=== PATIENT | female | born 1950 | race Caucasian/White ===

== ENCOUNTER 2020-07-13 19:16 | Inpatient (IN) ==
[2020-07-13] MEDS ORDERED: SODIUM CHLORIDE 0.9% 1000ML 1,000 ML IV SCH (20:00)
--- NOTE | 2020-07-13 20:00 | Emergency Department Note ---
History of Present Illness General Chief complaint: Referred by Doctor Stated complaint: COVID + Time Seen by Provider: 07/13/20 19:30 Source: patient Mode of arrival: ambulatory Limitations: no limitations History of Present Illness Provider complaint: Kidney failure This is a 70-year-old female who presents to the ED with a chief complaint of kidney failure. The patient states that she was diagnosed with COVID-19 on Monday. She had her test last Monday, 5 days ago. She states that she has been fatigued and has had a decreased appetite with poor p.o. intake. She had the onset of her Covid symptoms about 10 days ago with a cough and congestion. The patient states that she went to the [facility] today and was diagnosed with kidney failure. She states that they wanted to transfer her to [facility] or [facility] but there were no beds available. She states that a family member who works here told her just to sign out and come to [facility] [address]. The patient was discharged from there and came here. She was given IV fluids there. She was also given some IV nausea medication. Laboratory studies from [facility] earlier today shows a BUN of 94 and a creatinine of 5.0. They report her baseline as 0.9. She did have a chest x-ray at the outside facility that revealed a COVID-19 type pattern. Past Med/Surg History Medical History (Updated 07/13/20 @ 21:06 by Smooth Carrington DO) Depression High cholesterol Hypertension IBS (irritable bowel syndrome) Social History Smoking Status: Never smoker Preferred Language: Swiss Feels Safe at Home: Yes Review of Systems A total of 10 systems reviewed and were otherwise negative Physical Exam Vital Signs Vital Signs - 24 hr 07/13/20 19:18 07/13/20 20:17 07/13/20 20:31 Temperature 35.3 C L Temperature Source Temporal Artery Scan Pulse Rate 79 79 79 Respiratory Rate 22 24 24 Respiratory Depth Normal Blood Pressure 89/59 L 105/48 L 89/54 L Blood Pressure Mean 69 67 65 Pulse Oximetry 97 98 98 Oxygen Delivery Method Room Air Sepsis Recent Fever Within 48 Hours No Sepsis New/Unexplained Change in Mental Status N/A Sepsis Action Taken by Nursing No Action Required 07/13/20 20:45 Temperature Temperature Source Pulse Rate 73 Respiratory Rate 24 Respiratory Depth Blood Pressure 91/48 L Blood Pressure Mean 62 Pulse Oximetry 98 Oxygen Delivery Method Sepsis Recent Fever Within 48 Hours Sepsis New/Unexplained Change in Mental Status Sepsis Action Taken by Nursing CONSTITUTIONAL/VITAL SIGNS: Reviewed / noted above. GENERAL: Non-toxic in appearance. INTEGUMENTARY: Warm, dry, and [place]. HEAD: Normocephalic. EYES: without scleral icterus or trauma. ENT/OROPHARYNX: clear and moist. LYMPHADENOPATHY/NECK: Is supple without lymphadenopathy or meningismus. RESPIRATORY: Lungs clear and equal. CARDIOVASCULAR: Regular rate and rhythm. GI/ABDOMEN: Soft and nontender. No organomegaly or pulsatile mass. No rebound or guarding. Normal bowel sounds. EXTREMITIES: Warm and well perfused. BACK: No CVA tenderness. NEUROLOGICAL: Intact without focal deficits. PSYCHIATRIC: normal affect. MUSCULOSKELETAL: Normally developed with good muscle tone. TRIAGE NURSING DOCUMENTATION REVIEWED. Course Administered Medications Discontinued Medications Sodium Chloride (Nss 1000ml) 1,000 mls @ 999 mls/hr IV .Q1H1M JULIO CESAR Stop: 07/13/20 21:00 Last Admin: 07/13/20 20:18 Dose: 999 mls/hr Documented by: [id number] Medical Decision Making Differential Diagnosis Differential includes acute coronary syndrome, myocardial infarction, CVA, TIA, anemia, infection, pneumonia, UTI, pyelonephritis, poor nutrition, dehydration, electrolyte disturbance,hypoglycemia. Medical Records Attestation: I reviewed the patient's medical records. Home Medications Current Medication List: was personally reviewed by me Laboratory Data Attestation: I reviewed the patient's lab results. Result diagrams: 07/13/20 20:15 07/13/20 20:15 Lab Results 07/13/20 07/13/20 Range/Units 20:15 20:15 WBC 7.53 (4.8-10.8) K/uL RBC 4.38 (4.2-5.4) M/uL Hgb 12.9 (12.0-16.0) g/dL Hct 36.7 L (37-47) % MCV 83.8 (80-100) fL MCH 29.5 (25-34) pg MCHC 35.1 (32-36) g/dL RDW Std Deviation 39.7 (36.4-46.3) fL RDW Coeff of Doreen 13.1 (11.5-14.5) % Plt Count 257 (130-400) K/uL MPV 9.9 (7.4-10.4) fL Immature Gran % (Auto) 0.4 % Neut % (Auto) 74.5 % Lymph % (Auto) 17.3 % [place] % (Auto) 7.7 % Eos % (Auto) 0.0 % Baso % (Auto) 0.1 % Neut # (Auto) 5.61 (1.4-6.5) K/uL Lymph # (Auto) 1.30 (1.2-3.4) K/uL [place] # (Auto) 0.58 (0.11-0.59) K/uL Eos # (Auto) 0.00 (0-0.5) K/uL Baso # (Auto) 0.01 (0-0.2) K/uL Immature Gran # (Auto) 0.03 H (0.00-0.02) K/uL Sodium 132 L (136-145) mmol/L Potassium 3.5 (3.5-5.1) mmol/L Chloride 104 (98-107) mmol/L Carbon Dioxide 16 L (21-32) mmol/L Anion Gap 12.0 H (3-11) BUN 92 H (7-18) mg/dl Creatinine 3.79 H (0.6-1.2) mg/dl Est Cr Clr Drug Dosing 15.1 ml/min Est GFR ( Amer) 13.4 Est GFR (Non-Af Amer) 11.6 BUN/Creatinine Ratio 24.2 H (10-20) Glucose 110 H (70-99) mg/dl Calcium 8.9 (8.5-10.1) mg/dl Magnesium 2.8 H (1.8-2.4) mg/dl Total Bilirubin 0.5 (0.2-1) mg/dl AST 18 (15-37) U/L ALT 25 (12-78) U/L Alkaline Phosphatase 67 (45-117) U/L Total Creatine Kinase 113 (26-192) U/L Total Protein 8.1 (6.4-8.2) gm/dl Albumin 3.2 L (3.4-5.0) gm/dl Globulin 4.9 H (2.5-4.0) gm/dl Albumin/Globulin Ratio 0.7 L (0.9-2) TSH 1.070 (0.300-4.500) uIu/ml MDM Narrative Patient presents after going to another hospital earlier and being told that her blood work suggested kidney failure. They wanted her to be transferred to another hospital but were unable to do so. She checked out and decided to come here on her own. She reports fatigue and decreased p.o. intake related to a recent diagnosis of Covid. She is noted to have a blood pressure of 89/59. She does have a history of hypertension. The patient CBC was unremarkable. Her BUN is 92 and creatinine is 3.79. Earlier today at the outside hospital her creatinine was 5.0 (0.9 baseline) with a BUN of 94. Her magnesium now is 2.8. It was 3.0 earlier today. The patient will be seen by the hospitalist for further evaluation and care. Impression & Plan Acute renal failure, Acute dehydration, COVID-19 Discharge Plan Visit Data Chief Complaint: Referred by Doctor Stated Complaint: COVID + ED Provider: Smooth Carrington Discharge Problem: Acute renal failure, Acute dehydration, COVID-19 Patient Disposition: Being Evaluated by Hospitalist Forms Stand Alone Forms: My [facility] Referrals Referrals: PCP,NO [Primary Care Provider] -
[2020-07-13 20:34] LABS: Basophils # (auto) 0.01 K/uL (0-0.2); Basophils % (auto) 0.1 %; Hematocrit (blood only) 36.7 % (37-47); Hemoglobin 12.9 g/dL (12.0-16.0); Immature Granulocytes # (auto) 0.03 K/uL (0.00-0.02); Immature Granulocytes % (auto) 0.4 %; Lymphocytes % (auto) 17.3 %; Mean Corpuscular Hemoglobin 29.5 pg (25-34); Mean Corpuscular Hgb Conc 35.1 g/dL (32-36); Mean Corpuscular Volume 83.8 fL (80-100); Mean Platelet Volume 9.9 fL (7.4-10.4); Monocytes # (auto) 0.58 K/uL (0.11-0.59); Monocytes % (auto) 7.7 %; Neutrophils # (auto) 5.61 K/uL (1.4-6.5); Neutrophils % (auto) 74.5 %; Platelet Count 257 K/uL (130-400); RDW Coefficient of Variation 13.1 % (11.5-14.5); RDW Standard Deviation 39.7 fL (36.4-46.3); Red Blood Count 4.38 M/uL (4.2-5.4); White Blood Count 7.53 K/uL (4.8-10.8)
[2020-07-13 21:00] LABS: Albumin Level 3.2 gm/dl (3.4-5.0); BUN Creatinine Ratio 24.2 (10-20); Calcium 8.9 mg/dl (8.5-10.1); Creatinine Clr Calc Pharmacy 15.1 ml/min; Est GFR (African American) 13.4; Est GFR (Non-African American) 11.6; Magnesium 2.8 mg/dl (1.8-2.4); Potassium 3.5 mmol/L (3.5-5.1)
[2020-07-13 21:10] LABS: Albumin Globulin Ratio 0.7 (0.9-2); Bilirubin,Total 0.5 mg/dl (0.2-1); Globulin 4.9 gm/dl (2.5-4.0); Thyroid Stimulating Hormone 1.07 uIu/ml (0.300-4.500); Total Protein 8.1 gm/dl (6.4-8.2)
[2020-07-13 21:33] LABS: Appearance Urine Cloudy (Clear); Bacteria Urine Automated Negative (Negative); Bilirubin Urine Negative (Negative); Blood Urine 1+ (Negative); Color Urine Yellow; Epithelial Cell Urine Auto >30 /lpf (0-5); Glucose Urine UA Negative (Negative); Ketones Urine Negative (Negative); Leukocyte Esterase Urine 1+ (Negative); Nitrite Urine Negative (Negative); Protein Urine 1+ (Negative); RBC Urine Automated 0-4 /hpf (0-4); Specific Gravity Urine 1.018 (1.000-1.030); Urobilinogen Urine Negative (Negative)
[2020-07-13 21:49] LABS: Cast Urine Automated >30 /lpf (0-5); Granular Casts Urine >30 /lpf (0)
--- NOTE | 2020-07-13 22:31 | History & Physical Report ---
Date of Service July 13, 2020 Assessment & Plan (1) Acute renal failure: Mrs. Sutherland is a 70 yo woman with a PMHx of HTN, HLD, depression, and irritable bowel syndrome who presented to [facility] from an outside facility regarding acute kidney failure. Earlier today, she was seen in [facility] in [place], [place] where her serum creatinine was 5.0 (her baseline Cr is reportedly 0.8, from 03/2020). Upon arrival to [facility], serum creatinine was 3.79. - baseline Cr 0.8 (per patient's report of labs drawn in 03/2020). - serum creatinine 5.0 earlier today at [facility]. Cr 3.79 on arrival to [facility] - BUN elevated to 92. Ratio 24 - K normal at 3.5 - suspect ARF is due to reported lack of PO intake related to her concurrent COVID 19 infection --> renal hypoperfusion - UA + for hyaline and granular casts - suspect pre-renal vs. Acute tubular necrosis (intrarenal) - no recent nephrotoxin use (such as IV contrast, vancomycin, cisplatin, aminoglycosides, or NSAIDs) - patient was given 1 liter of normal saline at [facility]. additional 1 liter bolus given in our ED. Continue NSS at 150mls/hr. 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 For this reason, I will give one dose of Dexamethasone, 6mg, IV. Recommend no further use if O2 sat remains > 94% on room air. - I will hold off on remdesirivr at this time - but this can be reconsidered in am if O2 saturation worsens - convalescent plasma not indicated (it has been > 3 days since symptom onset) - Lovenox 0.5mg/kg q12 for prophylaxis - supplemental O2 as needed - COVID 19 isolation precautions - negative pressure room (3) Increased anion gap metabolic acidosis: - anion gap 14 (corrected for low albumin) - lactate pending - uremia is a possible cause (BUN 92) - patient not on isoniazid. No anti-freeze ingestion. Glucose normal on admission, not in DKA. No salicylate use. - fluids as above - trend BMP (4) Hyponatremia: - level 132 on admission, up form 131 at [facility] - unknown if this is a chronic vs. acute issue - continue normal saline as above - repeat BMP in am (5) Hypertension: - home medication regimen consists of atenolol 100mg BID and Valsartan 80 BID - patient was hypotensive on arrival at 89/54 - will hold home BP meds on admission (6) High cholesterol: - continue home dose statin (7) Depression: - continue home dose sertraline (8) IBS (irritable bowel syndrome): - continue home dose Linzess and Amitiza Dispo: Med surg w tele Diet: Heart Healthy Dvt ppx: Lovenox as above Code: Full, I discussed with patient History of Present Illness Primary Care Provider: NO PCP Mrs. Sutherland is a 70 yo woman with a PMHx of HTN, HLD, depression, and irritable bowel syndrome who presented to [facility] from an outside facility regarding acute kidney failure. Earlier today, she was seen in [facility] in [place], [place] where her serum creatinine was 5.0 (her baseline Cr is reportedly 0.8, from 03/2020). The facility was looking to transfer her to either [facility] or [facility], but there were no beds immediately available at either institution. Mrs. Sutherland decided to sign herself out of [facility] and drive to [facility] (her brother is a nurse here) for further evaluation and management. Of note, Mrs. Sutherland tested positive for COVID 19 last week. She started experiencing symptoms 10 days ago (07/03/20), which consisted of nasal congestion, cough, fever, and profound fatigue. She was tested at a clinic near her home on 07/08/20, and was informed of her positive result on 07/10/20. As a result of her viral illness, Mrs. Mccombie reported reduced oral intake of both food and drink. She denies any diarrhea, nausea or vomiting. She did not ever lose her sense of taste or smell. She did take two tablets of Ibuprofen early in the course of her illness, but denies any regular use of NSAIDs. She has no history of chronic kidney disease. She has no history of underlying lung disease or congestive heart failure. She is not immunocompromised. Social Hx: she lives at home with her son - who was also sick over the past week with more mild symptoms. she is a life-time non-smoker. Prior to leaving [facility], she was given 1 liter of normal saline. On arrival to our ED, she was afebrile, HR normal at 79, BP low at 89/59 (MAP 69), RR 20 and O2 sat of 97 on room air. Her WBC was normal. Hgb normal. Her glucose was 110. Na low at 132. K normal at 3.5. Mag high at 2.8. Cr 3.79. BUN 92. TSH normal at 1. EKG showing accelerated junction rhythm, however on my read, it is NSR at [address] segment changes. Covid 19 testing was not repeated. She was given 1 liter of normal saline. Allergies Allergy/AdvReac Type Severity Reaction Status Date / Time No Known Allergies Allergy Unverified 07/13/20 21:38 Home Medications Medication Instructions Recorded Confirmed Type atenolol 100 mg PO BID 07/13/20 07/13/20 History atorvastatin 20 mg PO DAILY 07/13/20 07/13/20 History linaclotide [Linzess] 290 mcg PO DAILY 07/13/20 07/13/20 History lubiprostone [Amitiza] 24 mcg PO BID 07/13/20 07/13/20 History polyethylene glycol 3350 [Miralax] 17 g PO DAILY PRN 07/13/20 07/13/20 History sertraline 50 mg PO BID 07/13/20 07/13/20 History valsartan 80 mg PO BID 07/13/20 07/13/20 History Past Med/Surg History Medical History Depression High cholesterol Hypertension IBS (irritable bowel syndrome) Social History Smoking Status: Never smoker Hx Alcohol Use: No Hx Substance Use: No Preferred Language: Spanish Communication Ability: Effective 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 Beliefs That Will Affect Care: None Current Living Situation: Spouse Other Information That Helps Us Care for You: No Feels Safe at Home: Yes and No Is there a partner from a previous relationship who is making you feel unsafe now?: No Any Concerns about Your Family Situation: No Would You Like to Speak to Someone About Your Situation: No Safety Concerns: Feels Safe At This Time Assistive Devices: None Review of Systems Constitutional: + fatigue and + anorexia; no fever and no chills Respiratory: + cough Cardiovascular: no chest pain Physical Exam Constitutional: WD/WN, vitals as above + ill appearing and cooperative; no acute distress Eyes: + anicteric sclerae ENMT: external ear and nose normal, oropharynx normal Neck: normal visual inspection and trachea midline Respiratory: normal respiratory effort and + cough; no respiratory distress, no labored breathing and no stridor Auscultation: no crackles, no rales, no wheezes and no pleural rub Cardiovascular: RRR, no murmur, no edema Heart Sounds: normal S1 and normal S2 Extremities: no pedal edema Gastrointestinal (Abdomen): normal bowel sounds, soft, nontender, no hepatosplenomegaly Skin: no rashes, warm and dry Neurologic: moves all extremities Psychiatric: A+Ox3, euthymic affect Results & Data Results & Data ([facility]) Vital Signs (Past 12 Hours) Vital Signs Temp Pulse Resp BP Pulse Ox 07/13/20 21:31 72 20 97/48 L 93 07/13/20 20:45 73 24 91/48 L 98 07/13/20 20:31 79 24 89/54 L 98 07/13/20 20:17 79 24 105/48 L 98 07/13/20 19:18 35.3 C L 79 22 89/59 L 97 Supervising Physician Co-Signing Physician Notes Attending addendum: I have physically seen this patient, have supervised the medical residents activities, and agree with the H&P unless as otherwise noted. Assessment and Plan: Acute kidney injury- Creatinine 5.0 in the outpatient setting today, then 3.79 upon admission, with baseline 0.8. Prerenal state suggested with BUN to creatinine ratio 24. Patient received 1 L normal saline in ED, and will give another liter of normal saline now, Then continue NSS at 150 mils per hour Repeat BMP and magnesium level in a.m. COVID-19 infection confirmed on 07/10 at [facility], from test on 07/08- Dexamethasone 6 mg IV tonight, and reassess in the a.m. Ventolin HFA 2 puffs 4 times daily, and every 2 hours as needed Lovenox 0.5 mg kilogram subcu every 12 hours Nasal cannula oxygen, titrate to keep pulse ox 94 to 95% Remaining orders and notations as noted Resident Activity Tracking Resident Involvement: Resident Care Provided Care Provided: Adult Hospital Medicine
[2020-07-13] MEDS ORDERED: POLYETHYLENE (MIRALAX) 17 GM PACK PO PRN (23:26)
[2020-07-13] MEDS ORDERED: ACETAMINOPHEN 325 MG TAB PO PRN (23:26)
[2020-07-13] MEDS ORDERED: ONDANSETRON INJ 2 MG/ML 2 ML VIAL IV PRN (23:26)
[2020-07-13] MEDS ORDERED: DEXAMETHASONE SOD INJ 4 MG/ML VIAL IV STA (23:26)
[2020-07-14] MEDS: SODIUM CHLORIDE 0.9% 1000ML 1,000 ML IV SCH ×2 (00:30→05:53)
[2020-07-14] MEDS: ENOXAPARIN INJ 40 MG/0.4 ML SYR SQ SCH ×2 (01:05→21:12)
[2020-07-14 01:46] LABS: BUN Creatinine Ratio 28.3 (10-20); Calcium 8.3 mg/dl (8.5-10.1); Creatinine Clr Calc Pharmacy 19.8 ml/min; Est GFR (African American) 18.4; Est GFR (Non-African American) 15.8; Potassium 3.6 mmol/L (3.5-5.1)
--- NOTE | 2020-07-14 08:45 | Hospitalist Progress Note ---
Date of Service July 14, 2020 Assessment & Plan (1) Acute renal failure: Mrs. Sutherland is a 70 yo woman with a PMHx of HTN, HLD, depression, and irritable bowel syndrome who presented to [facility] from an outside facility regarding acute kidney failure. Earlier today, she was seen in [facility] in [place], [place] where her serum creatinine was 5.0 (her baseline Cr is reportedly 0.8, from 03/2020). Upon arrival to [facility], serum creatinine was 3.79. - K normal at 3.5 - suspect ARF is due to reported lack of PO intake, related to her concurrent COVID 19 infection , plus use of ARB --> renal hypoperfusion - UA + for hyaline and granular casts there is no active sediment to suspect postinfectious glomerulonephritis at this point in time - suspect pre-renal vs. Acute tubular necrosis (intrarenal) - patient was given 1 liter of normal saline at [facility]. additional 1 liter bolus given in our ED. Continue Normosol at 150mls/hr patient with a slight increase her chloride renal is following creatinine great improvement in the evening of 07/14/2020. 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 For this reason, she was given one dose of Dexamethasone, 6mg, IV. Recommend no further use if O2 sat remains > 94% on room air. - convalescent plasma not indicated (it has been > 3 days since symptom onset) - Lovenox 0.5mg/kg q12 for prophylaxis - supplemental O2 as needed - COVID 19 isolation precautions (3) Increased anion gap metabolic acidosis: - anion gap 14 resolved (4) Hyponatremia: Resolved (5) Hypertension: - home medication regimen consists of atenolol 100mg BID and Valsartan 80 BID - patient remains hypotensive - will continue to hold home BP meds on admission, and continue ivf (6) High cholesterol: - continue home dose statin (7) Depression: - continue home dose sertraline (8) IBS (irritable bowel syndrome): - continue home dose Linzess and Amitiza Dispo: Med surg w tele Diet: Heart Healthy Dvt ppx: Lovenox as above Code: Full, I discussed with patient Admission and Anticipated Discharge Date Admission Date: July 13, 2020 Subjective pt feels improved, her renal function continues to improve with ivf, with covid she remains on room air Review of Systems Review of Systems: Mild distress and fatigue no headache, blurry or double vision no speech or swallowing issues no chest pain, pressure or palpitations Remains slightly tachypneic, no cough or wheezes no abdominal pain, nausea or vomiting, still with loose bowel movements no dysuria, hematuria or frequency no focal joint pain or swelling no back pain, CVA tenderness or radicular pain no bruising, bleeding or rashes no focal signs of weakness or numbness or altered sensation no complaints of anxiety or depression.. Physical Exam Physical Exam: The patient appeared well nourished and normally developed. Vital signs as documented. Head exam is normocephalic atraumatic no scleral icterus Neck is without JVD, thyromegaly, or carotid bruits. Lungs are mild bibasilar rales otherwise clear, no focal loss of breath sounds Cardiac exam, Rhythm is regular.. No murmurs, rubs or gallops. Abdominal exam reveals normal bowel sounds, soft non tender, no masses Extremities are nonedematous and both pedal pulses are present Neurologic exam is alert and oriented, no focal loss of strength or sensation Skin is without bruises or rashes Psychologically is without concerns for anxiety or depression. Results & Data Results & Data ([facility]) Vital Signs (Past 12 Hours) Vital Signs Temp Pulse Pulse Resp BP BP Pulse Ox 07/14/20 07:35 97.9 F 58 L 20 92/57 L 96 07/14/20 05:57 94/56 L 07/14/20 05:56 99/42 L 07/14/20 03:50 98.6 F 70 18 105/57 L 97 07/13/20 23:59 72 07/13/20 23:45 98.8 F 73 20 103/54 L 96 07/13/20 23:26 98.8 F 20 103/54 L 96 07/13/20 22:17 78 20 93/50 L 96 07/13/20 22:00 79 23 82/48 L 94 07/13/20 21:31 72 20 97/48 L 93 07/13/20 20:45 73 24 91/48 L 98 PG Care Time/CCT Total # of Minutes Spent Total Time Spent with Patient: Total time spent is greater than 50% in coordination of care (as documented) at patient's floor/unit and/or counseling patient: Coding Level of Care Code 79247 Subseq Hosp Care Lvl 3 Diagnoses Acute renal failure N17.9 COVID-19 U07.1 Increased anion gap metabolic acidosis E87.2 Hyponatremia E87.1 Hypertension I10 High cholesterol E78.00 Depression F32.9 IBS (irritable bowel syndrome) K58.9
[2020-07-14] MEDS ORDERED: ATORVASTATIN 20 MG TAB PO SCH (09:00)
[2020-07-14] MEDS: SERTRALINE HCL 50 MG TABLET PO SCH ×2 (09:24→21:12)
[2020-07-14] MEDS: LINACLOTIDE 145 MCG CAPSULE PO SCH (09:25)
[2020-07-14] MEDS: LUBIPROSTONE 8 MCG CAP PO SCH ×2 (09:25→21:12)
--- NOTE | 2020-07-14 11:23 | Electrocardiogram Report ---
Test Reason : Blood Pressure : / mmHG Vent. Rate : 071 BPM Atrial Rate : 071 BPM P-R Int : 000 ms QRS Dur : 092 ms QT Int : 430 ms P-R-T Axes : 000 056 028 degrees QTc Int : 467 ms sinus rhythm No previous ECGs available Confirmed by Yossi Mckenzie ([id number]) on 07/14/2020 11:22:42 AM Referred By: REFERRED SELF Confirmed By:Fernando Mckenzie
[2020-07-14] MEDS: NORMOSOL-R 1,000 ML IV SCH ×3 (15:19→22:08)
--- NOTE | 2020-07-14 16:25 | Nephrology Consultation ---
Date of Consultation July 14, 2020 Assessment & Plan (1) Acute renal failure: * Consistent with ATN and prerenal physiology * UA with hyaline and granular casts * Creatinine improving * Follow up labs have been sent * Valsartan held * Continue IVF to maintain a positive fluid balance and support MAP >65 * Normosol @ 150 ml/hr * Document I/O's * Repeat metabolic profile in the AM (2) COVID-19: * Medications appropriate for kidney function (3) Increased anion gap metabolic acidosis: * Metabolic acidosis attributed to renal dysfunction * Predominately NAGMA * Additional HCO3 replacement deferred at this time * Will monitor (4) Hypertension: * Atenolol and valsartan held due to kidney dysfunction * Avoid restarting ARB at this time given GLENDA History of Present Illness Reason for Consultation: GLENDA Requesting Physician: Haim Hinson MD Attending Physician: Haim Hinson MD History of Present Illness Lorenza Mclean is a 70-year-old female with hypertension, hyperlipidemia, IBS, and depression. She has normal kidney function at baseline with a serum creatinine of <1 mg/dL. Lorenza presented to [facility] yesterday with weakness and dyspnea. She is COVID 19+ with pneumonia. Evaluation also notable for significant acute on chronic renal insufficiency. Lorenza was transferred to [facility] yesterday. I called and spoke with her on the phone today. I reviewed the medical record and discussed the plan of care with Dr. Hinson. Creatinine peaked at 5.0 mg/dL on admission and has improved to 2.9 mg/dL. Follow up labs have now been sent and are currently pending. Lorenza is tolerating IVF well. Overall, symptoms are improving. She is non-oliguric. Urine studies demonstrating hyaline and granular casts but otherwise acellular. No renal imaging currently available for review. No prior history of GLENDA. Lorenza has never been previously evaluated by a geoduck diver. Allergies Allergy/AdvReac Type Severity Reaction Status Date / Time No Known Allergies Allergy Unverified 07/13/20 21:38 Home Medications Medication Instructions Recorded Confirmed Type atenolol 100 mg PO BID 07/13/20 07/13/20 History atorvastatin 20 mg PO DAILY 07/13/20 07/13/20 History linaclotide [Linzess] 290 mcg PO DAILY 07/13/20 07/13/20 History lubiprostone [Amitiza] 24 mcg PO BID 07/13/20 07/13/20 History polyethylene glycol 3350 [Miralax] 17 g PO DAILY PRN 07/13/20 07/13/20 History sertraline 50 mg PO BID 07/13/20 07/13/20 History valsartan 80 mg PO BID 07/13/20 07/13/20 History Patient History Medical History Depression High cholesterol Hypertension IBS (irritable bowel syndrome) Social History Smoking Status: Never smoker Hx Alcohol Use: No Hx Substance Use: No Preferred Language: Croatian Communication Ability: Effective Diamond Selector Required: No Beliefs That Will Affect Care: None Current Living Situation: Spouse Other Information That Helps Us Care for You: No Feels Safe at Home: Yes and No Is there a partner from a previous relationship who is making you feel unsafe now?: No Any Concerns about Your Family Situation: No Would You Like to Speak to Someone About Your Situation: No Safety Concerns: Feels Safe At This Time Assistive Devices: None Review of Systems Review of Systems: All systems reviewed & are unremarkable except as noted in HPI & below Physical Exam Physical Exam: Deferred due to COVID 19 Results & Data ([facility]) Vital Signs (Past 12 Hours) Vital Signs Temp Pulse Resp BP Pulse Ox 07/14/20 15:35 36.5 C 71 18 101/53 L 93 07/14/20 11:44 36.3 C L 61 19 95/52 L 95 07/14/20 07:35 36.6 C 58 L 20 92/57 L 96 07/14/20 05:57 94/56 L 07/14/20 05:56 99/42 L Laboratory Results Laboratory Results - last 24 hr 07/13/20 07/13/20 07/13/20 20:15 20:15 21:05 WBC 7.53 RBC 4.38 Hgb 12.9 Hct 36.7 L MCV 83.8 MCH 29.5 MCHC 35.1 RDW Std Deviation 39.7 RDW Coeff of Doreen 13.1 Plt Count 257 MPV 9.9 Immature Gran % (Auto) 0.4 Neut % (Auto) 74.5 Lymph % (Auto) 17.3 Davis % (Auto) 7.7 Eos % (Auto) 0.0 Baso % (Auto) 0.1 Neut # (Auto) 5.61 Lymph # (Auto) 1.30 Davis # (Auto) 0.58 Eos # (Auto) 0.00 Baso # (Auto) 0.01 Immature Gran # (Auto) 0.03 H Sodium 132 L Potassium 3.5 Chloride 104 Carbon Dioxide 16 L Anion Gap 12.0 H BUN 92 H Creatinine 3.79 H Est Cr Clr Drug Dosing 15.1 Est GFR ( Amer) 13.4 Est GFR (Non-Af Amer) 11.6 BUN/Creatinine Ratio 24.2 H Glucose 110 H Lactate Calcium 8.9 Phosphorus Magnesium 2.8 H Total Bilirubin 0.5 AST 18 ALT 25 Alkaline Phosphatase 67 Total Creatine Kinase 113 Total Protein 8.1 Albumin 3.2 L Globulin 4.9 H Albumin/Globulin Ratio 0.7 L TSH 1.070 Specimen Hemolysis Urine Color Yellow Urine Appearance Cloudy A Urine pH 5.0 Ur Specific [place] 1.018 Urine Protein 1+ H Urine Glucose (UA) Negative Urine Ketones Negative Urine Blood 1+ H Urine Nitrite Negative Urine Bilirubin Negative Urine Urobilinogen Negative Ur Leukocyte Esterase 1+ H Urine WBC (Auto) 10-30 H Urine RBC (Auto) 0-4 U Hyaline Cast (Auto) >30 H U Epithel Cells (Auto) >30 H Urine Bacteria (Auto) Negative Granular Casts >30 H Urine Yeast Not Reportable 07/13/20 07/14/20 07/14/20 23:43 00:48 00:48 WBC RBC Hgb Hct MCV MCH MCHC RDW Std Deviation RDW Coeff of Doreen Plt Count MPV Immature Gran % (Auto) Neut % (Auto) Lymph % (Auto) Davis % (Auto) Eos % (Auto) Baso % (Auto) Neut # (Auto) Lymph # (Auto) Davis # (Auto) Eos # (Auto) Baso # (Auto) Immature Gran # (Auto) Sodium 136 Potassium 3.6 Chloride 109 H Carbon Dioxide 17 L Anion Gap 10.0 BUN 83 H Creatinine 2.92 H D Est Cr Clr Drug Dosing 19.8 Est GFR ( Amer) 18.4 Est GFR (Non-Af Amer) 15.8 BUN/Creatinine Ratio 28.3 H Glucose 98 Lactate 0.7 Calcium 8.3 L Phosphorus Magnesium Total Bilirubin AST ALT Alkaline Phosphatase Total Creatine Kinase 110 Total Protein Albumin Globulin Albumin/Globulin Ratio TSH Specimen Hemolysis Urine Color Urine Appearance Urine pH Ur Specific [place] Urine Protein Urine Glucose (UA) Urine Ketones Urine Blood Urine Nitrite Urine Bilirubin Urine Urobilinogen Ur Leukocyte Esterase Urine WBC (Auto) Urine RBC (Auto) U Hyaline Cast (Auto) U Epithel Cells (Auto) Urine Bacteria (Auto) Granular Casts Urine Yeast 07/14/20 00:48 WBC RBC Hgb Hct MCV MCH MCHC RDW Std Deviation RDW Coeff of Doreen Plt Count MPV Immature Gran % (Auto) Neut % (Auto) Lymph % (Auto) Davis % (Auto) Eos % (Auto) Baso % (Auto) Neut # (Auto) Lymph # (Auto) Davis # (Auto) Eos # (Auto) Baso # (Auto) Immature Gran # (Auto) Sodium Pending Potassium Pending Chloride Pending Carbon Dioxide Pending Anion Gap Pending BUN Pending Creatinine Pending Est Cr Clr Drug Dosing Pending Est GFR ( Amer) Pending Est GFR (Non-Af Amer) Pending BUN/Creatinine Ratio Pending Glucose Pending Lactate Calcium Pending Phosphorus Pending Magnesium Total Bilirubin AST ALT Alkaline Phosphatase Total Creatine Kinase Total Protein Albumin Pending Globulin Albumin/Globulin Ratio TSH Specimen Hemolysis Urine Color Urine Appearance Urine pH Ur Specific [place] Urine Protein Urine Glucose (UA) Urine Ketones Urine Blood Urine Nitrite Urine Bilirubin Urine Urobilinogen Ur Leukocyte Esterase Urine WBC (Auto) Urine RBC (Auto) U Hyaline Cast (Auto) U Epithel Cells (Auto) Urine Bacteria (Auto) Granular Casts Urine Yeast PG Care Time/CCT Total # of Minutes Spent Total Time Spent with Patient: Total time spent is greater than 50% in coordination of care (as documented) at patient's floor/unit and/or counseling patient: Coding Level of Care Code 33646 Inpt Consult Level 3 Diagnoses Acute renal failure N17.9 COVID-19 U07.1 Increased anion gap metabolic acidosis E87.2 Hypertension I10
[2020-07-14 16:49] LABS: Albumin Level 3.1 gm/dl (3.4-5.0); BUN Creatinine Ratio 38.5 (10-20); Calcium 9.1 mg/dl (8.5-10.1); Creatinine Clr Calc Pharmacy 33.9 ml/min; Est GFR (Non-African American) 30.2; Phosphorus 3.3 mg/dl (2.5-4.9); Potassium 4.1 mmol/L (3.5-5.1)
[2020-07-14] MEDS: ATORVASTATIN 20 MG TAB PO SCH (21:12)
[2020-07-14] MEDS: SODIUM BICARBONATE 650 MG TAB PO SCH (22:09)
--- NOTE | 2020-07-14 23:58 | Billing Data ---
Date of Service July 14, 2020 Coding Level of Care Code 92360 Initial Inpt Care Lvl 3
[2020-07-15] MEDS: NORMOSOL-R 1,000 ML IV SCH ×3 (05:56→20:41)
[2020-07-15 06:38] LABS: Albumin Level 2.6 gm/dl (3.4-5.0); BUN Creatinine Ratio 44.3 (10-20); Calcium 8.8 mg/dl (8.5-10.1); Creatinine Clr Calc Pharmacy 54.5 ml/min; Est GFR (African American) 63.2; Est GFR (Non-African American) 54.5; Phosphorus 2.5 mg/dl (2.5-4.9); Potassium 3.7 mmol/L (3.5-5.1)
[2020-07-15] MEDS: AMOXICILLIN 500 MG CAP PO SCH ×3 (08:09→20:46)
[2020-07-15] MEDS: SERTRALINE HCL 50 MG TABLET PO SCH ×2 (08:10→20:45)
[2020-07-15] MEDS: SODIUM BICARBONATE 650 MG TAB PO SCH (08:12)
[2020-07-15] MEDS ORDERED: POTASSIUM CHLORIDE 10 MEQ TABCR PO STA (08:50)
[2020-07-15] MEDS: LUBIPROSTONE 8 MCG CAP PO SCH ×2 (11:15→20:44)
[2020-07-15] MEDS: LINACLOTIDE 145 MCG CAPSULE PO SCH (13:11)
--- NOTE | 2020-07-15 16:12 | Hospitalist Progress Note ---
Date of Service July 15, 2020 Assessment & Plan (1) Acute renal failure: Mrs. Sutherland is a 70 yo woman with a PMHx of HTN, HLD, depression, and irritable bowel syndrome who presented to [facility] from an outside facility regarding acute kidney failure. Earlier today, she was seen in [facility] in [place], [place] where her serum creatinine was 5.0 (her baseline Cr is reportedly 0.8, from 03/2020). Upon arrival to [facility], serum creatinine was 3.79. - - suspect ARF is due to reported lack of PO intake, related to her concurrent COVID 19 infection , plus use of ARB --> renal hypoperfusion - UA + for hyaline and granular casts there is no active sediment to suspect postinfectious glomerulonephritis at this point in time - suspect pre-renal vs. 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 For this reason, she was given one dose of Dexamethasone, 6mg, IV. Recommend no further use if O2 sat remains > 94% on room air. Patient is off airborne isolation precautions however she will need to remain on isolation with mask and staff wearing gloves at this time - convalescent plasma not indicated (it has been > 3 days since symptom onset) - Lovenox 0.5mg/kg q12 for prophylaxis - supplemental O2 not needed - COVID 19 isolation precautions but airborne precautions are relaxed (3) Increased anion gap metabolic acidosis: - anion gap 14 resolved (4) Hyponatremia: Resolved (5) Urinary tract infection: Urinary tract infection present on admission pansensitive E. coli started amoxicillin therapy (6) Hypertension: - home medication regimen consists of atenolol 100mg BID and Valsartan 80 BID - patient remains without the need of recent instituting these medications will certainly watch for rebound tachycardia - will continue to hold home BP meds on admission, and continue ivf (7) High cholesterol: - continue home dose statin (8) Depression: - continue home dose sertraline (9) IBS (irritable bowel syndrome): - continue home dose Linzess and Amitiza Dispo: Med surg w tele Diet: Heart Healthy Dvt ppx: Lovenox as above Code: Full, I discussed with patient Admission and Anticipated Discharge Date Admission Date: July 13, 2020 Subjective pt feels improved, her renal function continues to improve with ivf, with covid she remains on room air infection control is released her from airborne isolation. Patient feels her overall fatigue and lethargy prevent her from being safe at home today but hopefully will have her assist by physical therapy on 07/16 Review of Systems Review of Systems: Mild distress and fatigue no headache, blurry or double vision no speech or swallowing issues no chest pain, pressure or palpitations Remains slightly tachypneic, no cough or wheezes no abdominal pain, nausea or vomiting, still with loose bowel movements no dysuria, hematuria or frequency no focal joint pain or swelling no back pain, CVA tenderness or radicular pain no bruising, bleeding or rashes no focal signs of weakness or numbness or altered sensation no complaints of anxiety or depression.. Physical Exam Physical Exam: The patient appeared well nourished and normally developed. Vital signs as documented. Head exam is normocephalic atraumatic no scleral icterus Neck is without JVD, thyromegaly, or carotid bruits. Lungs are mild bibasilar rales otherwise clear, no focal loss of breath sounds Cardiac exam, Rhythm is regular.. No murmurs, rubs or gallops. Abdominal exam reveals normal bowel sounds, soft non tender, no masses Extremities are nonedematous and both pedal pulses are present Neurologic exam is alert and oriented, no focal loss of strength or sensation Skin is without bruises or rashes Psychologically is without concerns for anxiety or depression. Results & Data Results & Data ([facility]) Vital Signs (Past 12 Hours) Vital Signs Temp Pulse Pulse Resp BP Pulse Ox 07/15/20 15:22 97.0 F L 78 18 113/73 98 07/15/20 11:34 97.7 F 87 20 126/68 94 07/15/20 08:07 97.9 F 65 20 104/60 96 07/15/20 08:00 55 L PG Care Time/CCT Total # of Minutes Spent Total Time Spent with Patient: Total time spent is greater than 50% in coordination of care (as documented) at patient's floor/unit and/or counseling patient: Coding Level of Care Code 10877 Subseq Hosp Care Lvl 3 Diagnoses Acute renal failure N17.9 COVID-19 U07.1 Increased anion gap metabolic acidosis E87.2 Hyponatremia E87.1 Urinary tract infection N39.0 Hypertension I10 High cholesterol E78.00 Depression F32.9 IBS (irritable bowel syndrome) K58.9
--- NOTE | 2020-07-15 16:59 | Nephrology Progress Note ---
Date of Service July 15, 2020 Assessment & Plan (1) Acute renal failure: * Consistent with ATN and prerenal physiology * UA with hyaline and granular casts * Creatinine improving * Valsartan held * Continue IVF to maintain a positive fluid balance, rate reduced from 150 ml/hr to 100 ml/hr * Document I/O's * Medications appropriate for kidney function * Repeat metabolic profile in the AM (2) COVID-19: * Medications appropriate for kidney function (3) Increased anion gap metabolic acidosis: * Metabolic acidosis attributed to renal dysfunction and GI losses * Predominately NAGMA, improving * HCO3 added overnight for persistent low - will hold now and recheck in the AM (4) Hypertension: * Atenolol and valsartan held due to kidney dysfunction * Avoid restarting ARB at this time Admission and Anticipated Discharge Date Admission Date: July 13, 2020 Subjective No acute events overnight. Continued improvement noted. Some persistent loose stools. Appetite not great. Activity tolerance remains limited. No fevers or chills. Review of Systems Review of Systems: All systems reviewed & are unremarkable except as noted in HPI & below Physical Exam Physical Exam: Deferred due to COVID 19 Results & Data ([facility]) Vital Signs (Past 12 Hours) Vital Signs Temp Pulse Pulse Resp BP Pulse Ox 07/15/20 15:22 36.1 C L 78 18 113/73 98 07/15/20 11:34 36.5 C 87 20 126/68 94 07/15/20 08:07 36.6 C 65 20 104/60 96 07/15/20 08:00 55 L Laboratory Results Laboratory Results - last 24 hr 07/15/20 05:26 Sodium 144 Potassium 3.7 Chloride 116 H Carbon Dioxide 20 L Anion Gap 8.0 BUN 47 H Creatinine 1.05 Est Cr Clr Drug Dosing 54.5 Est GFR ( Amer) 63.2 Est GFR (Non-Af Amer) 54.5 BUN/Creatinine Ratio 44.3 H Glucose 106 H Calcium 8.8 Phosphorus 2.5 Albumin 2.6 L PG Care Time/CCT Total # of Minutes Spent Total Time Spent with Patient: Total time spent is greater than 50% in coordination of care (as documented) at patient's floor/unit and/or counseling patient: Coding Level of Care Code 06716 Subseq Hosp Care Lvl 2 Diagnoses Acute renal failure N17.9 COVID-19 U07.1 Increased anion gap metabolic acidosis E87.2 Hypertension I10
[2020-07-15] MEDS: ATORVASTATIN 20 MG TAB PO SCH (20:45)
[2020-07-15] MEDS: ENOXAPARIN INJ 40 MG/0.4 ML SYR SQ SCH (20:46)
[2020-07-16] MEDS: NORMOSOL-R 1,000 ML IV SCH (05:48)
[2020-07-16 07:42] LABS: Albumin Level 2.6 gm/dl (3.4-5.0); Calcium 8.5 mg/dl (8.5-10.1); Creatinine Clr Calc Pharmacy 88.6 ml/min; Est GFR (African American) 105.7; Est GFR (Non-African American) 91.2; Phosphorus 2.2 mg/dl (2.5-4.9); Potassium 3.8 mmol/L (3.5-5.1)
[2020-07-16] MEDS: AMOXICILLIN 500 MG CAP PO SCH ×2 (08:17→13:25)
[2020-07-16] MEDS: SERTRALINE HCL 50 MG TABLET PO SCH (08:18)
[2020-07-16] MEDS: LUBIPROSTONE 8 MCG CAP PO SCH (08:18)
[2020-07-16] MEDS ORDERED: LINACLOTIDE 145 MCG CAPSULE PO SCH (12:30)
--- NOTE | 2020-07-16 18:52 | Discharge Summary ---
Date of Service July 16, 2020 Admission HPI Per Admitting Provider Mrs. Sutherland is a 70 yo woman with a PMHx of HTN, HLD, depression, and irritable bowel syndrome who presented to [facility] from an outside facility regarding acute kidney failure. Earlier today, she was seen in [facility] in [place], [place] where her serum creatinine was 5.0 (her baseline Cr is reportedly 0.8, from 03/2020). The facility was looking to transfer her to either [facility] or [facility], but there were no beds immediately available at either institution. Mrs. Sutherland decided to sign herself out of [facility] AMA and drive to [facility] (her brother is a nurse here) for further evaluation and management. Of note, Mrs. Sutherland tested positive for COVID 19 last week. She started experiencing symptoms 10 days ago (07/03/20), which consisted of nasal congestion , cough, fever, and profound fatigue. She was tested at a clinic near her home on 07/08/20, and was informed of her positive result on 07/10/20. As a result of her viral illness, Mrs. Sutherland reported reduced oral intake of both food and drink. She denies any diarrhea, nausea or vomiting. She did not ever lose her sense of taste or smell. She did take two tablets of Ibuprofen early in the course of her illness, but denies any regular use of NSAIDs. She has no history of chronic kidney disease. She has no history of underlying lung disease or congestive heart failure. She is not immunocompromised. Social Hx: she lives at home with her son - who was also sick over the past week with more mild symptoms. she is a life-time non-smoker. Prior to leaving [facility], she was given 1 liter of normal saline. On arrival to our ED, she was afebrile, HR normal at 79, BP low at 89/59 (MAP 69), RR 20 and O2 sat of 97 on room air. Her WBC was normal. Hgb normal. Her glucose was 110. Na low at 132. K normal at 3.5. Mag high at 2.8. Cr 3.79. BUN 92. TSH normal at 1. EKG showing accelerated junction rhythm, however on my read, it is NSR at [address] segment changes. Covid 19 testing was not repeated. She was given 1 liter of normal saline. Principal Diagnosis acute kidney injury covid infection not pneumonia urinary tract infection Discharge Exam The patient appeared well Vital signs as documented. Lungs are clear to auscultation and appear unlabored Cardiac exam, Rhythm is regular.. No murmurs, rubs or gallops. Abdominal exam reveals normal bowel sounds, soft non tender, no masses Extremities are nonedematous and both pedal pulses are normal. Neurologic exam is alert and oriented, no focal loss of strength or sensation Skin is without bruises or rashes Psychologically is without concerns for anxiety or depression. Discharge Data Allergies Allergy/AdvReac Type Severity Reaction Status Date / Time No Known Allergies Allergy Unverified 07/13/20 21:38 Consultations 07/13/20 21:12 ED Decision to Admit Stat 07/13/20 23:26 Consult Nephrology Routine Hospital Course (1) Acute renal failure: Mrs. Sutherland is a 70 yo woman with a PMHx of HTN, HLD, depression, and irritable bowel syndrome who presented to [facility] from an outside facility regarding acute kidney failure. Earlier today, she was seen in [facility] in [place], [place] where her serum creatinine was 5.0 (her baseline Cr is reportedly 0.8, from 03/2020). Upon arrival to [facility], serum creatinine was 3.79. -Resolved - suspect ARF is due to reported lack of PO intake, related to her concurrent COVID 19 infection , plus use of ARB --> renal hypoperfusion - UA + for hyaline and granular casts there is no active sediment to suspect postinfectious glomerulonephritis at this point in time - suspect pre-renal vs. 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 For this reason, she was given one dose of Dexamethasone, 6mg, IV. Recommend no further use if O2 sat remains > 94% on room air. Patient is off airborne isolation precautions however she will need to remain on isolation with mask and staff wearing gloves at this time - convalescent plasma not indicated (it has been > 3 days since symptom onset) - supplemental O2 not needed - COVID 19 isolation precautions but airborne precautions are relaxed (3) Increased anion gap metabolic acidosis: resolved (4) Hyponatremia: Resolved (5) Urinary tract infection: Urinary tract infection present on admission pansensitive E. coli complete amoxicillin therapy (6) Hypertension: -With resolution of renal failure will recommend resumption of atenolol 100mg BID and Valsartan 80 BID -Recommend outpatient follow-up of laboratories by primary care physician - (7) High cholesterol: - continue home dose statin (8) Depression: - continue home dose sertraline (9) IBS (irritable bowel syndrome): - continue home dose Linzess and Amitiza Total Time Total Time Spent Total Time Spent (In Minutes): It required greater than 30 minutes to prepare this patient for discharge Discharge Plan Discharge Items Patient Disposition: Home - Self-Care Reason For Visit: ACUTE RENAL FAILURE Discharge Diagnosis: acute renal failure secondary to dehydration secondary to covid infection Activity: Per Instructions section Activity Comment: slowly increase activity Non-emergency contact: Primary Care Provider Call non-emergency contact if: your symptoms worsen Follow-up/Referrals: PCP,NO [Primary Care Provider] - Diet: Regular Addtl Attending Provider Instructions: Please continue to be aware of your oral intake of liquids, you should produce light colored urine 3-4 times a day Please follow up with your primary care doctor you are out of the quarantine window for your covid infection, please still wear an mask in public and continue social distancing complete your antibiotic for a urinary infection Pending Studies at Discharge: No Stand-Alone Forms: [email or web address], Smoking Cessation Medications and DC Order Prescriptions: New amoxicillin 500 mg Capsule 500 mg PO TID Qty: 12 RF: 0 fluconazole [Diflucan] 150 mg tablet 150 mg PO DAILY Qty: 1 RF: 0 Continued atorvastatin 20 mg Tablet 20 mg PO DAILY RF: 0 polyethylene glycol 3350 [Miralax] 17 gram Powder In Packet 17 g PO DAILY PRN (Reason: Constipation) RF: 0 atenolol 100 mg Tablet 100 mg PO BID RF: 0 valsartan 80 mg Tablet 80 mg PO BID RF: 0 sertraline 50 mg Tablet 50 mg PO BID RF: 0 Amitiza 24 mcg Capsule 24 mcg PO BID RF: 0 Linzess 290 mcg Capsule 290 mcg PO DAILY RF: 0 Discharge Orders: Discharge Order (Routine); Ordered 07/16/20 Ordered By: Haim Hinson Admission Data Admit Date/Time: 07/13/20 22:06 Attending Provider: Haim Hinson Admit Provider: Brandie Agrawal Primary Care Provider: PCP,NO Other Providers: Rik Rachel Kevin C. Other Interventions: Discharge Summary Assessment (RN) Last Done: 07/16/20 11:00 Coding Level of Care Code D/C Day Management >30 mins Diagnoses Acute renal failure N17.9 COVID-19 U07.1 Increased anion gap metabolic acidosis E87.2 Hyponatremia E87.1 Urinary tract infection N39.0 Hypertension I10 High cholesterol E78.00 Depression F32.9 IBS (irritable bowel syndrome) K58.9
== END 2020-07-16 15:02 | disposition home or self-care (01) | DRG 682 ==
LOC: ED 19:16 → SUATTDRO 22:06 → 2S 22:06 → 2W 07-16 10:35